=== PATIENT | male | born 2000 | race Caucasian/White ===

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

== ENCOUNTER 2023-05-07 17:55 | Emergency (ER) | payer BC ==
[~2023-05-07] VITALS: Ht 182.9 cm; Wt 68.6 kg
[2023-05-07 18:26] VITALS: TEMP 99.3
[2023-05-07] MEDS ORDERED: Rabies Immune Globulin PF 300 UNITS/2 ML VIAL IM ONE (18:45)
[2023-05-07 19:42] VITALS: BP 120/856; PULSE 79
== END 2023-05-07 19:42 | disposition other institution (70) ==
LOC: COL.ER 17:55
DX: S61.051A Open bite of right thumb without damage to nail, initial encounter (principal); Z23 Encounter for immunization; W54.0XXA Bitten by dog, initial encounter